=== PATIENT | female | born 1950 | race Caucasian/White ===

== ENCOUNTER 2018-02-12 12:35 | Outpatient (CLI) | payer MEDICARE, OTHER ==
--- NOTE | 2018-02-23 15:47 | Mammography Report ---
Procedure Date: 02/12/2018 Accession Number: [id number] / [id number] Procedure: NAOMI - Screening Mammo Dig Bilat CPT Code: FULL RESULT: EXAM: Screening Mammo Dig Bilat DATE: 02/12/2018 1:11 PM CLINICAL HISTORY: 67-year-old female with a history of a total of 4 years of hormone therapy presents for screening mammogram. TECHNIQUE: Bilateral CC and MLO views were obtained. COMPARISON: Images from prior mammography studies could not be obtained. Therefore no comparisons made and the study represents a new baseline study. FINDINGS: The breasts demonstrate heterogeneously dense fibroglandular parenchyma bilaterally. Typically benign coarse calcifications are seen in the left and right breast. No suspicious masses, clustered microcalcifications, or regions of architectural distortion are identified. IMPRESSION: Benign findings RECOMMENDATION: Routine annual screening unless otherwise clinically indicated. BIRADS CATEGORY 2: Benign findings STANDARD QUALIFYING STATEMENTS: 1. This examination was reviewed with the aid of Computer-Aided Detection (CAD). 2. A negative or benign imaging report should not delay biopsy if clinically suspicious findings are present. Consider surgical consultation if warrented. More than 5% of cancers are not identified by imaging. 3. Dense breasts may obscure an underlying neoplasm.
== END 2018-02-12 12:36 | disposition home or self-care (01) ==
LOC: DI 12:35
PROVIDERS: ATTEND Internal Medicine
DX: Z12.31 Encounter for screening mammogram for malignant neoplasm of breast (principal)
CPT/HCPCS: 77067

== ENCOUNTER 2018-02-13 08:27 | Outpatient (CLI) | payer MEDICARE, OTHER ==
[2018-02-13 08:57] LABS: BASOPHILS # (AUTO) 0.1 10^3/uL (0.0-0.1); BASOPHILS % (AUTO) 1.1 %; EOSINOPHILS # (AUTO) 0.1 10^3/uL (0.0-0.7); EOSINOPHILS % (AUTO) 2.7 %; HGB - HEMOGLOBIN 13.3 g/dL (12.0-16.0); LYMPHOCYTES # (AUTO) 1.7 10^3/uL (1.5-3.5); LYMPHOCYTES % (AUTO) 32.8 %; MEAN CORPUSCULAR HEMOGLOBIN 28.4 pg (27.0-31.0); MEAN CORPUSCULAR HGB CONC 32.8 g/dL (32.0-36.0); MEAN CORPUSCULAR VOLUME 86.7 fL (81.0-99.0); MONOCYTES # (AUTO) 0.4 10^3/uL (0.0-1.0); MONOCYTES % (AUTO) 7.7 %; NEUTROPHILS # (AUTO) 2.9 10^3/uL (1.5-6.6); NEUTROPHILS % (AUTO) 55.7 %; PLT - PLATELET COUNT 234 10^3/uL (130-450); RED BLOOD COUNT 4.69 10^6/uL (4.20-5.40); RED CELL DISTRIBUTION WIDTH 14.5 % (12.0-15.0); WHITE BLOOD COUNT 5.2 x10^3/uL (4.8-10.8)
[2018-02-13 09:14] LABS: ALBUMIN/GLOBULIN RATIO 1.3 (1.0-2.2); ALKALINE PHOSPHATASE 46 IU/L (42-121); ALT ALANINE AMINOTRANSFERASE 12 IU/L (10-60); AST ASPARTATE AMINOTRANSFERASE 18 IU/L (10-42); BUN - BLOOD UREA NITROGEN 18 mg/dL (6-20); CALCIUM 9.3 mg/dL (8.5-10.3); CARBON DIOXIDE - CO2 26 mmol/L (21-32); CHLORIDE 106 mmol/L (101-111); CHOL/HDL RATIO 2.7 (<4.4); CHOLESTEROL 206 mg/dL; CREATININE 0.9 mg/dL (0.4-1.0); GFR - MDRD 63 (>89); GLUCOSE 97 mg/dL (70-100); HDL CHOLESTEROL 77 mg/dL; LDL CHOLESTEROL,CALCULATED 115 mg/dL; LDL/HDL RATIO 1.5 (<4.4); SODIUM 140 mmol/L (135-145); TOTAL PROTEIN 7.1 g/dL (6.7-8.2); VLDL CHOLESTEROL 14 mg/dL
== END 2018-02-13 08:28 | disposition home or self-care (01) ==
LOC: LAB 08:27
PROVIDERS: ATTEND Internal Medicine
DX: E78.5 Hyperlipidemia, unspecified (principal); E66.3 Overweight; K21.9 Gastro-esophageal reflux disease without esophagitis
CPT/HCPCS: 36415; 80053; 80061; 83721; 84443; 85025

== ENCOUNTER 2018-04-18 15:35 | Outpatient (CLI) | payer MEDICARE, OTHER | END 2018-04-18 15:36 | disposition home or self-care (01) | LOC: LAB.R 15:35 | PROVIDERS: ATTEND Physician Assistant Medical | DX: N30.00 Acute cystitis without hematuria (principal) | CPT/HCPCS: 87086; 87181 ==

== ENCOUNTER 2018-12-24 08:00 | Outpatient (CLI) | payer MEDICARE, OTHER | END 2018-12-24 23:59 | disposition home or self-care (01) | LOC: LAB.R 08:00 | PROVIDERS: ATTEND Nurse Practitioner | DX: N30.00 Acute cystitis without hematuria (principal) | CPT/HCPCS: 87086; 87181 ==

== ENCOUNTER 2019-02-12 07:54 | Outpatient (CLI) | payer MEDICARE, OTHER ==
[2019-02-12 08:36] LABS: BASOPHILS % (AUTO) 0.8 %; EOSINOPHILS # (AUTO) 0.1 10^3/uL (0.0-0.7); EOSINOPHILS % (AUTO) 2.8 %; LYMPHOCYTES # (AUTO) 1.7 10^3/uL (1.5-3.5); LYMPHOCYTES % (AUTO) 34.9 %; MEAN CORPUSCULAR HEMOGLOBIN 28.2 pg (27.0-31.0); MEAN CORPUSCULAR HGB CONC 32.3 g/dL (32.0-36.0); MEAN CORPUSCULAR VOLUME 87.4 fL (81.0-99.0); MEAN PLATELET VOLUME 10.4 fL (7.9-10.8); MONOCYTES # (AUTO) 0.4 10^3/uL (0.0-1.0); MONOCYTES % (AUTO) 8.4 %; NEUTROPHILS # (AUTO) 2.6 10^3/uL (1.5-6.6); NEUTROPHILS % (AUTO) 52.9 %; PLT - PLATELET COUNT 240 10^3/uL (130-450); RED BLOOD COUNT 4.61 10^6/uL (4.20-5.40); RED CELL DISTRIBUTION WIDTH 14.6 % (12.0-15.0)
[2019-02-12 08:37] LABS: ALBUMIN/GLOBULIN RATIO 1.3 (1.0-2.2); ALKALINE PHOSPHATASE 47 IU/L (42-121); ALT ALANINE AMINOTRANSFERASE 10 IU/L (10-60); AST ASPARTATE AMINOTRANSFERASE 14 IU/L (10-42); BILIRUBIN,TOTAL 1.1 mg/dL (0.2-1.0); BUN - BLOOD UREA NITROGEN 21 mg/dL (6-20); CALCIUM 9.2 mg/dL (8.5-10.3); CARBON DIOXIDE - CO2 25 mmol/L (21-32); CHLORIDE 106 mmol/L (101-111); CHOL/HDL RATIO 2.9 (<4.4); CHOLESTEROL 218 mg/dL; CREATININE 0.9 mg/dL (0.4-1.0); GFR - MDRD 62 (>89); GLUCOSE 101 mg/dL (70-100); HDL CHOLESTEROL 76 mg/dL; LDL CHOLESTEROL,CALCULATED 128 mg/dL; LDL/HDL RATIO 1.7 (<4.4); SODIUM 142 mmol/L (135-145); TOTAL PROTEIN 7.1 g/dL (6.7-8.2); VLDL CHOLESTEROL 14 mg/dL
== END 2019-02-12 07:55 | disposition home or self-care (01) ==
LOC: LAB 07:54
PROVIDERS: ATTEND Nurse Practitioner
DX: E78.5 Hyperlipidemia, unspecified (principal); K21.9 Gastro-esophageal reflux disease without esophagitis; R63.5 Abnormal weight gain
CPT/HCPCS: 36415; 80053; 80061; 83721; 84443; 85025

== ENCOUNTER 2019-03-07 14:46 | Outpatient (CLI) | payer MEDICARE, OTHER ==
--- NOTE | 2019-03-08 11:18 | Mammography Report ---
Reason: SCREENING MAMMO Procedure Date: 03/07/2019 Accession Number: [id number] / [id number] Procedure: NAOMI - Screening Mammo w/[place] CPT Code: FULL RESULT: EXAM: Screening Mammo w/[facility] DATE: 03/07/2019 3:37 PM CLINICAL HISTORY: Screening encounter. TECHNIQUE: (B) - Bilateral CC and MLO views were obtained. COMPARISON: 02/12/2018 through 09/01/2015. PARENCHYMAL PATTERN: (A) - The breast(s) demonstrate(s) scattered fibroglandular densities. FINDINGS: Newly seen in the right breast 6 cm from the nipple in the lower outer quadrant is a poorly defined 1 cm isodense nodule with surrounding architectural distortion, MLO 3-D image 14 and CC 3-D image 15. This requires additional focused right breast ultrasound. There are no suspicious masses, calcifications, or areas of distortion in the left breast. IMPRESSION: Incomplete examination. BI-RADS category 0. RECOMMENDATION: (ADDUS) - Targeted ultrasound recommended. Right breast lower-outer quadrant. BI-RADS CATEGORY: (0) - Incomplete Examination - need additional evaluation. STANDARD QUALIFYING STATEMENTS: 1. This examination was not reviewed with the aid of Computer-Aided Detection (CAD). 2. A negative or benign imaging report should not preclude biopsy if clinically suspicious findings are present. 3. Dense breasts may obscure an underlying neoplasm. 4. This examination was reviewed with the aid of 3D breast imaging (tomosynthesis).
== END 2019-03-07 14:47 | disposition home or self-care (01) ==
LOC: DI 14:46
DX: Z12.31 Encounter for screening mammogram for malignant neoplasm of breast (principal); R92.8 Other abnormal and inconclusive findings on diagnostic imaging of breast
CPT/HCPCS: 77063; 77067

== ENCOUNTER 2019-03-14 13:36 | Outpatient (CLI) | payer MEDICARE, OTHER ==
--- NOTE | 2019-03-15 08:33 | Ultrasound Report ---
Reason: ABNORMAL MAMMOGRAM Procedure Date: 03/14/2019 Accession Number: [id number] / [id number] Procedure: US - Breast Unilateral Limited CPT Code: FULL RESULT: EXAM: Breast Unilateral Limited DATE: 03/14/2019 4:51 PM CLINICAL HISTORY: ABNORMAL MAMMOGRAM COMPARISON: 03/21/2018 and 03/08/2019. TECHNIQUE: Targeted ultrasound was performed of the right breast in the area of clinical concern at 8 o'clock and 6 cm distance from the nipple. Color Doppler was employed as appropriate. FINDINGS: A ill-defined hypoechoic nodule with posterior shadowing that appears taller than wide and measures 1.0 x 0.9 x 0.6 cm is identified, appearance is suspicious. IMPRESSION: Suspicious abnormality. RECOMMENDATION: Biopsy. Ultrasound-guided right side. BIRADS CATEGORY 4 RADIA
== END 2019-03-14 13:37 | disposition home or self-care (01) ==
LOC: DI 13:36
PROVIDERS: ATTEND Nurse Practitioner
DX: R92.8 Other abnormal and inconclusive findings on diagnostic imaging of breast (principal)
CPT/HCPCS: 76642

== ENCOUNTER 2019-03-19 09:26 | Outpatient (CLI) | payer MEDICARE, OTHER ==
[~2019-03-19 09:26] MED LIST: BUFFERED LIDOCAINE 10 ML SYRINGE ONE; BUPIVACAINE 0.5%-EPI 1:200000 PF 10 ML VIAL ONE
[2019-03-19] MEDS ORDERED: BUFFERED LIDOCAINE 10 ML SYRINGE IU ONE (12:55)
[2019-03-19] MEDS ORDERED: BUPIVACAINE 0.5%-EPI 1:200000 PF 10 ML VIAL SUBQ ONE (12:55)
--- NOTE | 2019-03-19 16:54 | Ultrasound Report ---
Reason: ABN MAMMO - RT BREAST NODULE Procedure Date: 03/19/2019 Accession Number: [id number] / [id number] Procedure: US - Biopsy Breast Core CPT Code: FULL RESULT: PROCEDURE: Ultrasound-guided needle biopsy right breast mass. CLINICAL DATA: Targeted mass measuring 1 cm with irregular margins in the 7 o'clock axis of the right breast. Informed consent was obtained. Using standard aseptic technique, both 1% buffered lidocaine and Sensorcaine were injected into the right breast for local anesthesia. A small ronna was made in the skin with a #11 blade. A 12-gauge XYDO vacuum-assisted device was used to obtain 4 specimens. A specialized biopsy marker clip was placed into the biopsy cavity under ultrasound guidance. The patient was taken to separate mammography machine and a two-view digital mammography was performed to verify the clip placement and any complications. The mammography showed concordant clip positioning. The wound was dressed and ice applied. The patient was observed for approximately 15 minutes, then was discharged from diagnostic imaging Department in good condition following instructions on wound care and obtaining biopsy results. The patient is scheduled to receive the biopsy results from the referring physician. The tissue was sent for histologic analysis. IMPRESSION: Ultrasound-guided biopsy of the right breast. AN ADDENDUM WILL BE MADE TO THIS REPORT WHEN PATHOLOGY IS REVIEWED TO ESTABLISH CONCORDANCE.
== END 2019-03-19 09:27 | disposition home or self-care (01) ==
LOC: DI 09:26
PROVIDERS: ATTEND Nurse Practitioner
DX: C50.511 Malignant neoplasm of lower-outer quadrant of right female breast (principal); Z17.0 Estrogen receptor positive status [ER+]
CPT/HCPCS: 19083